=== PATIENT | male | born 1945 | race Caucasian/White ===

== ENCOUNTER 2018-08-03 03:46 | Inpatient (IN) | payer OTHER ==
[~2018-08-03] VITALS: Ht 177.8 cm; Wt 101.8 kg
[~2018-08-03 03:46] MED LIST: ALLOPURINOL300 M1 PO; ATORVASTATIN CA80 M1 PO; FLONASE ALLERG9.9 ML NASB; PANTOPRAZOLE SO40 M1 PO; QUINAPRIL HCL10 M1 PO; ST. JOSEPH ASPI81 M1 PO; ZYRTEC10 M3 PO
--- NOTE | 2018-08-03 10:05 | RADIOLOGY REPORT ---
EXAMINATION: XR HIP, LEFT CLINICAL INFORMATION: Status post left hip replacement. COMPARISON: None TECHNIQUE: Two views of the left hip. FINDINGS: The left hip joint is poorly visualized on the crosstable lateral view due to overlapping structures. On the images obtained, the total left hip arthroplasty appears intact and in anatomic alignment. No acute [place] bone fracture is seen. Mild postsurgical changes as seen in the soft tissues with soft tissue emphysema noted. IMPRESSION: Anatomic alignment status post total left hip arthroplasty with no evidence of hardware failure or [place] bone fracture.
--- NOTE | 2018-08-03 10:45 | Admission Core Measures ---
Acute Coronary Syndrome (CM) ACS Core Measures Acute Coronary Syndrome Diagnosis No Congestive Heart Failure (NEW) CHF Core Measures Congestive Heart Failure Diagnosis No Cerebrovascular Accident CVA Core Measures CVA/TIA Diagnosis No Venous Thromboembolism VTE Core Star (View Protocol) VTE Risk Factors Surgery No Mechanical VTE Prophylaxis d/t N/A MechProphylax Ordered No VTE Pharm Prophylaxis d/t NA PharmProphylax ordered Problem List As ranked by this Provider includes Assessment & Plan 1. Unilateral primary osteoarthritis, left hip HOME MEDS Home Med List Allopurinol 300 MG TABLET 1 TAB PO DAILY GOUT (Reported) Aspirin ([place] Aspirin) 81 MG TABLET.DR 1 TAB PO DAILY HEARTHEALTH ( Reported) Atorvastatin Calcium 80 MG TABLET 1 TAB PO QPM CHOLESTEROL (Reported) Cetirizine HCl (Zyrtec) 10 MG TABLET 1 TAB PO QPM ALLERGIES (Reported) Fluticasone Propionate (Flonase Allergy Relief) 50 MCG/ACTUATION SPRAY.SUSP 2 SPRAY NASB DAILY ALLERGIES (Reported) Pantoprazole Sodium 40 MG TABLET.DR 1 TAB PO DAILY GERD (Reported) Quinapril HCl 10 MG TABLET 1 TAB PO DAILY BP (Reported)
[2018-08-03] MEDS ORDERED: INDOMETHACIN25 M1 PO (10:46)
[2018-08-03] MEDS ORDERED: ASPIRIN EC81 M1 PO (10:46)
[2018-08-03] MEDS ORDERED: MIRALAX17 G1 PO (10:46)
[2018-08-03] MEDS ORDERED: COLACE100 M1 PO (10:46)
[2018-08-03] MEDS ORDERED: DILAUDID2 M1 PO (10:46)
--- NOTE | 2018-08-03 10:49 | Patient Discharge Instructions ---
Discharge Instructions General Discharge Information You were seen/treated for: Left hip pain related to unilateral primary ostoearthritis You had these procedures: Left total hip replacement Watch for these problems: Increasing pain despite the use of pain medication Increasing redness, warmth or swelling Drainage of any type from incision Inability to bear weight on operative leg Persistent nausea and vomiting Fever greater than 101.5 degrees Do not soak the wound: Yes No bath, but you may shower: Yes Other wound care: Please keep wound clean and dry. No ointments or lotions of any type on or near incision at any time. No exceptions. Your dressing will be changed by your nurse on the second day after your surgery. Daily dry dressing changes are recommended each day thereafter. Do not soak your wound in a bath or pool at any time until otherwise indicated by your surgeon. You may shower, please dry wound immediately after shower with a clean towel. Special Instructions: Aspirin: You are taking this medication to help prevent blood clot formation. Please take with food to protect your stomach lining. Please take as directed. Constipation: Pain medication can cause constipation. Your surgeon has recommended that you take Colace and miralax each day. You may discontinue this medication if you develop loose stool or diarrhea. If you wish to continue this medication, it is available over the counter. If you are unable to move your bowels after several days, if you are unable to pass gas and are developing bloating, nausea, or vomiting as a result, please contact your doctor. Diet Continue normal diet: Yes Recommended Diet: Regular Activity Full Activity/No Limits: No Activity Self Limited: Yes Pounds, do NOT lift more than: 10 Acute Coronary Syndrome Inclusion Criteria At DC or during hospital stay patient has or had the following: ACS DIAGNOSIS No Discharge Core Measures Meds if any: Prescribed or Continued at Discharge Meds if any: NOT Prescribed or Continued at Discharge Congestive Heart Failure Inclusion Criteria At DC or during hospital stay patient has or had the following: CHF DIAGNOSIS No Discharge Core Measures Meds if any: Prescribed or Continued at Discharge Meds if any: NOT Prescribed or Continued at Discharge Cerebrovascular accident Inclusion Criteria At DC or during hospital stay patient has or had the following: CVA/TIA Diagnosis No Discharge Core Measures Meds if any: Prescribed or Continued at Discharge Meds if any: NOT Prescribed or Continued at Discharge Venous thromboembolism Inclusion Criteria VTE Diagnosis No VTE Type NONE VTE Confirmed by (Test) NONE Discharge Core Measures - Per Current guidelines, there needs to be overlap - treatment for the first 5 days of Warfarin therapy. - If discharged on Warfarin prior to 5 days of - overlap therapy, the patient will need to be - assessed for post discharge needs including - *Post discharge parental anticoagulation - *Warfarin and/or parental anticoagulation education - *Follow up date to check INR post discharge At least 5 days overlap therapy as Inpatient No Meds if any: Prescribed or Continued at Discharge Note: Overlap Therapy is Warfarin and Anticoagulant Meds if any: NOT Prescribed or Continued at Discharge
--- NOTE | 2018-08-03 10:51 | Surgical Discharge Summary ---
Visit Information Visit Dates Admission Date: 08/03/18 Discharge Date: 08/04/18 History of Present Illness Chief Complaint: Left hip pain related to unilateral primary osteoarthritis Surgical History Pertinent Surgical History: non-contributory Review of Systems: See H&P Hospital Course Course Attending Physician: Tien Gallegos MD Primary Care Physician: Aroldo Elkins MD Hospital Course: Patient was admitted to the hospital for an elective total joint replacement. The procedure was tolerated well and patient was transferred to a general surgical floor. Diet was advanced and tolerated. The patient was evaluated and treated by physical therapy. At the time of hospital discharge, the vital signs were stable, neurovascular status was intact, and pain was controlled with the use of oral pain medications. Allergies: Coded Allergies: cefuroxime (From CEFTIN) (HIVES 07/30/18) Disposition Summary Disposition Principal Diagnosis: Left hip unilateral primary ostoearthritis Additional Diagnosis: None Discharge Disposition: home health services Discharge Instructions General Discharge Information Code Status: Full Code Patient's Diet: Regular, advance as toleratead Patient's Activity: WBAT Follow-Up Instructions/Appts: Follow up with Dr. Gallegos in 6 weeks from date of surgery. Please call office to arrange &/or confirm this appointment. Medications at Discharge Discharge Medications: Stop taking the following medications: Aspirin (Cherry Aspirin) 81 MG TABLET. ORAL DAILY Continue taking these medications: Allopurinol (Allopurinol) 300 MG TABLET 1 Tablet ORAL DAILY Quinapril HCl (Quinapril HCl) 10 MG TABLET 1 Tablet ORAL DAILY Fluticasone Propionate (Flonase Allergy Relief) 50 MCG/ACTUATION SPRAY.SUSP 2 [place] Both sides of nose DAILY Pantoprazole Sodium (Pantoprazole Sodium) 40 MG TABLET.DR 1 Tablet ORAL DAILY Cetirizine HCl (Zyrtec) 10 MG TABLET 1 Tablet ORAL Every night Atorvastatin Calcium (Atorvastatin Calcium) 80 MG TABLET 1 Tablet ORAL Every night Start taking the following new medications: Aspirin (Ecotrin*) 81 MG TABLET.DR 1 Tablet ORAL TWICE DAILY Qty = 60 No Refills Docusate Sodium (Colace) 100 MG CAPSULE 1 Capsule ORAL TWICE DAILY Qty = 14 No Refills Instructions: DISCONTINUE USE IF YOU DEVELOP LOOSE STOOL OR DIARRHEA Polyethylene Glycol 3350 (Miralax) 17 GRAM POWD.PACK 1 Packet ORAL DAILY Qty = 7 No Refills Instructions: dissolve in water, DISCONTINUE USE IF YOU DEVELOP LOOSE STOOL OR DIARRHEA Indomethacin (Indomethacin) 25 MG CAPSULE 1 Capsule ORAL THREE TIMES DAILY Qty = 30 No Refills Instructions: with food Hydromorphone HCl (Dilaudid) 2 MG TABLET 1-2 Tablet ORAL EVERY 4-6 HOURS NEEDED as needed for PAIN Qty = 36 No Refills
[2018-08-03 11:10] VITALS: BP 125/76
--- NOTE | 2018-08-03 13:35 | PN- Orthopedic ---
Subjective Subjective: POC feeling well, +oob with nursing with walker, due to void postop, kofi reg diet, no cp/sob./n/v, pain well controlled Objective Vital Signs and I&Os Vital Signs Date Time Temp Pulse Resp B/P B/P Pulse O2 O2 Flow FiO2 Mean Ox Delivery Rate 08/03 1110 97.6 73 18 125/76 97 Room Air Intake & Output 08/03 1600 08/03 0800 08/03 0000 08/02 1600 08/02 0800 08/02 0000 Intake Total Output Total Balance Patient 227 lb Weight Weight Reported by Patient Measurement Method Physical Exam: GEN- NAD CARD- S1S2 PULM- CTAB ABD-soft nt EXT- L hip dressed, miniml;a serosang drainage, nontender, ice in place, calves soft nt bl, +sensation equally bl le, +dorsi/plantar flexion equally bl Assessment/Plan Assessment/Plan A- POD0 sp L TAJ, stable w minimal postop pain P- PT, WBAT anticoagulation: asa 81mg teds/alps indocin diet as tolerated home meds prn pain meds dc planning Core Measures Venous Thromboembolism VTE Risk Factors Surgery No Mechanical VTE Prophylaxis d/t N/A MechProphylax Ordered No VTE Pharm Prophylaxis d/t NA PharmProphylax ordered
[2018-08-03 14:46] VITALS: BP 130/70
[2018-08-03 17:00] VITALS: BP 147/84
--- NOTE | 2018-08-03 17:24 | Operative Report ---
Operative/Inv Procedure Report Surgery Date: 08/03/18 Name of Procedure: Left total hip replacement Pre-Operative Diagnosis: Primary left hip DJD Post-Operative Diagnosis: Same Estimated Blood Loss: 350 Surgeon/Veneer Stacker: Tien Gallegos MD Anesthesia: block Operative/Procedure Note Note: Description of Procedure: The patient was taken to the operating room and positively identified. After induction of spinal anesthesia and administration of appropriate pre-operative antibiotics, the patient was positioned supine on the operating room table and all bony prominences were well padded. After performing a surgical timeout, the left lower extremity was prepped and draped in the usual sterile fashion. A direct anterior approach was made to the left hip. The incision was carried sharply through superficial soft tissues to the level of the fascia. Meticulous hemostasis was maintained with Bovie electocautery. The fascia over the tensor fascia jean carlos muscle was opened sharply and the interval between the TFL and the sartorius was entered bluntly taking care to stay lateral to the lateral femoral cutaneous nerve. Retractors were placed around the femoral neck and the pericapsular fat was identified. The ascending branches of the lateral femoral circumflex vessels were identified and carefully coagulated. The pericapsular fat and anterior capsule were then resected. A napkin ring osteotomy was performed and the femoral head was removed without difficulty. Attention was then turned to the acetabulum. After appropriate placement of retractors, the acetabulum was exposed. Soft tissue was cleaned from the acetabular margin and notch. Overhanging osteophytes were removed and the teardrop was exposed. The acetabulum was then sequentially reamed to accept a 58 mm Jose Ramon Tritanium hemispherical solid shell. This was impacted into place in the appropriate position and fitted with a 36 mm Trident X3 zero degree polyethylene insert. Attention was then turned to the femur. After performing the appropriate ligament releases, the proximal femur was exposed. It was then sequentially broached to accept a size 7 Jose Ramon secure fit advanced 127 neck angle stem. This was trialed for leg length and stability. The trial component was removed and the final component was impacted into place. The trunnion was carefully cleaned and fit with a 36 mm, +5 Biolox delta ceramic femoral head. The hip was reduced and put through a full range of motion and found to be stable. The articular space was then irrigated with sterile saline. The periarticular soft tissues were infilitrated with Marcaine. The fascial layer was closed with interrupted #1 vicryl suture and the skin was re-approximated with interrupted 2 -0 vicryl. The skin was closed with a running 3-0 V-Lock suture. Steri-strips and a sterile dressing were applied. The patient was awakened and taken to the recovery room in satisfactory condition.
[2018-08-03 21:33] VITALS: BP 119/73
[2018-08-04 01:30] VITALS: BP 133/64
[2018-08-04 05:30] VITALS: BP 135/87
--- NOTE | 2018-08-04 08:30 | PN- Orthopedic ---
Subjective Subjective: POD#1 S/P LEFT TAJ NO MAJOR ISSUES OVERNIGHT SITTING UP IN BED EATING BREAKFAST DENIES CP, SOB, NO N+V WITH DIET Objective Vital Signs and I&Os Vital Signs Date Time Temp Pulse Resp B/P B/P Pulse O2 O2 Flow FiO2 Mean Ox Delivery Rate 08/04 0530 97.6 75 18 135/87 98 08/04 0130 98.2 81 18 133/64 95 08/03 2133 97.6 96 20 119/73 96 Room Air 08/03 1700 98.5 101 20 147/84 96 Room Air 08/03 1446 97.6 100 18 130/70 97 Room Air 08/03 1110 97.6 73 18 125/76 97 Room Air Intake & Output 08/04 1600 08/04 0800 08/04 0000 08/03 1600 08/03 0800 08/03 0000 Intake Total 240 1200 700 Output Total 300 Balance 240 1200 400 Intake, IV 600 300 Intake, Oral 240 600 400 Number 0 Bowel Movements Output, Urine 300 Patient 224 lb 227 lb Weight Weight Reported by Patient Measurement Method Physical Exam: CV; RRR LUNGS: CLEAR ABD: SOFT, +BS EXT: drsg dry THIGH SOFT, DISTAL CMS INTACT Assessment/Plan Assessment/Plan ORTHO STABLE PLAN OOB WITH PT TODAY D/C IVF TITRATE PAIN MEDS ASA FOR DVT PROPHYLAXIS INDOCIN FOR HO HOME D/C PLANNING Core Measures Venous Thromboembolism VTE Risk Factors Surgery No Mechanical VTE Prophylaxis d/t N/A MechProphylax Ordered No VTE Pharm Prophylaxis d/t NA PharmProphylax ordered
[2018-08-04 08:59] LABS: ABSOLUTE BASOPHIL COUNT 0 /CUMM (0.0-0.2); ABSOLUTE EOSINOPHIL COUNT 0 /CUMM (0.0-0.7); ABSOLUTE LYMPH COUNT 0.8 /CUMM (1.2-3.4); ABSOLUTE MONOCYTE COUNT 1.3 /CUMM (0.10-0.60); BASOPHIL % 0 % (0.0-2.0); EOSINOPHIL % 0 % (0-5); GRANULOCYTE % 82.2 % (42.2-75.2); HEMATOCRIT 35.7 % (42-52); MEAN CORPUSCULAR HGB 31.8 PG (27.0-31.0); MEAN CORPUSCULAR HGB CONC 34.5 G/DL (33.0-37.0); MEAN CORPUSCULAR VOLUME 92.1 FL (80.0-94.0); MEAN PLATELET VOLUME 9.5 FL (7.4-10.4); PLATELET COUNT 216 /CUMM (130-400); RBC DISTRIBUTION WIDTH 13.3 % (11.5-14.5); RED BLOOD CELL CT 3.88 /CUMM (4.70-6.10); WHITE BLOOD CELL COUNT 12.1 /CUMM (4.8-10.8)
[2018-08-04 09:00] VITALS: BP 132/52
== END 2018-08-04 13:18 | disposition home health service (06) | DRG 470 ==
LOC: SDA 03:46 → ENRESERV 10:18 → ENTRNSPT 10:36 → EDTRNSPT 10:55 → EDTRNSPTSTS 10:55 → 2NB 11:09 → CMPTRNSPT 11:28 → ENPENDDIS 08-04 09:05 → ENTRNSPT 08-04 13:06 → EDTRNSPT 08-04 13:11 → EDTRNSPTSTS 08-04 13:11 → 2NB 08-04 13:18 → CMPTRNSPT 08-04 13:38
PROVIDERS: Nurse Practitioner
PROC: 0SRB04A Replacement of Left Hip Joint with Ceramic on Polyethylene Synthetic Substitute, Uncemented, Open Approach (ICD-10-PCS; principal; 2018-08-03)
DX: M16.12 Unilateral primary osteoarthritis, left hip (principal); Z88.1 Allergy status to other antibiotic agents; I25.10 Atherosclerotic heart disease of native coronary artery without angina pectoris; I10 Essential (primary) hypertension; Z95.5 Presence of coronary angioplasty implant and graft; G47.33 Obstructive sleep apnea (adult) (pediatric); E78.5 Hyperlipidemia, unspecified; E66.9 Obesity, unspecified; Z68.32 Body mass index [BMI] 32.0-32.9, adult; M10.9 Gout, unspecified; Z90.49 Acquired absence of other specified parts of digestive tract
CPT/HCPCS: 2NBP; 36415; 73502-LT; 82436; 97110-GO; 97116-GO; 97161-GP; 97530-GO; J0131; J0690; J0735; J3490; J7042